=== PATIENT | male | born 2000 | race Caucasian/White ===

== ENCOUNTER 2022-04-18 14:33 | Emergency (ER) | payer OTHER ==
[2022-04-18 15:01] VITALS: BP 107/74; PULSE 83; TEMP 97.9; BMI 30.1
[2022-04-18] MEDS ORDERED: IBUPROFEN 600 MG TABLET (FP) PO ONE ×2 (16:43→16:45)
== END 2022-04-18 17:52 | disposition home or self-care (01) ==
LOC: JERFT 14:33
DX: M79.671 Pain in right foot (principal)
CPT/HCPCS: 73630-TC-RT-FY; 99284-25

== ENCOUNTER 2023-03-01 13:56 | Inpatient (IN) | payer OTHER ==
[2023-03-01 16:42] VITALS: BMI 31.5
[2023-03-01] MEDS ORDERED: MELATONIN 5 MG TABLETS PO PRN (17:25)
[2023-03-01] MEDS ORDERED: BENZOCAINE/MENTHOL (CHLORASEPTIC ) LOZENGE MM PRN (17:25)
[2023-03-01] MEDS ORDERED: TUBERCULIN PPD 5 TU/0.1ML SYRINGE (IN PATIENT USE ONLY) ID ONE (17:25)
[2023-03-01] MEDS ORDERED: AMMONIUM LACTATE 12% LOTION 225 GM BOTTLE TP PRN (17:25)
[2023-03-01] MEDS ORDERED: COLLOIDAL OATMEAL 1 BAR EACH TP PRN (17:25)
[2023-03-01] MEDS ORDERED: MAG HYDROX/AL HYDROX/SIMETH 30 ML UNIT-DOSE CUP PO PRN (17:25)
[2023-03-01] MEDS ORDERED: BENZONATATE 200 MG CAPSULE PO PRN (17:25)
[2023-03-01] MEDS ORDERED: P-EPHED 60MG/TRIPROLIDI 2.5MG TABLET PO PRN (17:25)
[2023-03-01] MEDS ORDERED: NALOXONE HCL 0.4 MG/ML VIAL IVPUSH PRN (17:25)
[2023-03-01] MEDS ORDERED: NALOXONE HCL (KLOXXADO) 8 MG SPRAY NS PRN (17:25)
[2023-03-01] MEDS ORDERED: POLYETHYLENE GLYCOL (HEALTHYLAX) 3350 17 GM PACKET PO PRN (17:25)
[2023-03-01] MEDS ORDERED: MAGNESIUM HYDROX 2400MG/30ML ORAL SUSPENSION 30 ML CUP PO PRN (17:25)
[2023-03-01] MEDS ORDERED: guaiFENesin 600 MG TABLET.ER (FP) PO PRN (17:25)
[2023-03-01] MEDS ORDERED: LOPERAMIDE HCL 2 MG CAPSULE PO PRN (17:25)
[2023-03-01] MEDS ORDERED: NICOTINE POLACRILEX 2 MG GUM BUC PRN (17:25)
[2023-03-01] MEDS ORDERED: ACETAMINOPHEN 325 MG TABLET (FP) PO PRN (18:59)
[2023-03-01 19:55] VITALS: BP 137/82; PULSE 66; RESP 18; TEMP 97.7
[2023-03-01] MEDS ORDERED: THIAMINE HCL 100 MG TABLET (FP) PO SCH (22:00)
[2023-03-02] MEDS ORDERED: PRENATAL VITAMINS W/ FOLIC ACID TABLET (FP) PO SCH (10:00)
== END 2023-03-02 02:52 | disposition short-term general hospital (02) | DRG 772 ==
LOC: YASAS 13:56 → Y5N 19:04
PROVIDERS: ADMIT Allergy & Immunology; ATTEND Psychiatry & Neurology Pain Medicine
PROC: HZ42ZZZ Group Counseling for Substance Abuse Treatment, Cognitive-Behavioral (ICD-10-PCS; principal; 2023-03-01)
DX: F11.20 Opioid dependence, uncomplicated (principal); F14.20 Cocaine dependence, uncomplicated; F15.20 Other stimulant dependence, uncomplicated; F17.210 Nicotine dependence, cigarettes, uncomplicated; F20.9 Schizophrenia, unspecified; Z28.310 Unvaccinated for COVID-19; Z28.9 Immunization not carried out for unspecified reason